=== PATIENT | female | born 1985 | race Asian ===

== ENCOUNTER 2016-06-20 11:34 | Emergency (ER) | payer SELFPAY ==
[~2016-06-20 11:34] MED LIST: ADVIL200 M3 PO; BACTRIM DS1 TA1 PO
[2016-06-20 12:49] LABS: BASO % 0.7 % (0-2); EOS % 1.5 % (0-7); EOSINOPHIL ABSOLUTE COUNT 0.1 tho/cmm (0.0-0.7); HCT-HEMATOCRIT 40.2 % (34.0-49.0); HGB-HEMOGLOBIN 13.7 gm/dl (12.0-15.5); IMMATURE GRANULOCYTES ABSOLUTE 0.01 tho/cmm (0-0.03); IMMATURE GRANULOCYTES PERCENT 0.2 % (0-0.3); LYMPH % 29.5 % (20-45); LYMPH ABSOLUTE COUNT 1.8 tho/cmm (0.8-4.5); MCH (MEAN CORPUSCULAR HGB) 31.6 pg (28.0-32.0); MCHC MEAN CORPUSCULAR HGB CONC 34.1 % (32.0-36.0); MCV (MEAN CELL VOLUME) 92.6 fl (82.0-96.0); MEAN PLATELET VOLUME 9.8 cmc (9.4-12.4); MONO % 4.7 % (0-12); MONOCYTE ABSOLUTE COUNT 0.3 tho/cmm (0.0-1.2); NEUTROPHIL ABSOLUTE COUNT 3.8 tho/cmm (1.6-8.0); NEUTROPHIL-AUTOMATED 3.8 tho/cmm (1.6-8.0); NEUTROPHILS % 63.4 % (40-80); PLATELET COUNT 282 tho/cmm (150-450); RED BLOOD COUNT 4.34 mil/cmm (4.00-5.20); RED CELL DISTRIBUTION WIDTH 12.2 % (12.4-16.4)
[2016-06-20 13:01] LABS: ANION GAP 12 mmol/L (0-20); BLOOD UREA NITROGEN 10 mg/dl (6-24); CALCIUM 9.1 mg/dl (8.5-10.5); CARBON DIOXIDE-VENOUS 24 mmol/L (22-32); CHLORIDE 105 mmol/l (96-110); CREATININE 0.72 mg/dl (0.50-1.10); GLUCOSE 96 mg/dL (70-110); SODIUM 137 mmol/L (135-145); eGFR VALUE FOR BLACK >90 mL/Min
[2016-06-20 13:02] LABS: PREGNANCY-SERUM NEGATIVE (NEGATIVE)
[2016-06-20 13:03] LABS: POTASSIUM 3.9 mmol/L (3.7-5.1)
[2016-06-20] MEDS ORDERED: NORCO 5-325 TA1 EACH PO (16:01)
[2016-06-20] MEDS ORDERED: CIPRO500 M2 PO (16:01)
[2016-06-20] MEDS ORDERED: FLAGYL500 M1 PO (16:01)
[2016-07-08] MEDS ORDERED: TUMS PO (18:19)
[2016-07-08] MEDS ORDERED: PEPTO-BISM262 MG/11 PO (18:19)
== END 2016-06-20 16:56 ==
LOC: EDMED 11:34
PROVIDERS: Emergency Medicine
DX: K62.89 Other specified diseases of anus and rectum (principal)
CPT/HCPCS: J7030; Q9967

== ENCOUNTER 2016-07-10 12:01 | Day surgery (SDC) | payer SELFPAY ==
[~2016-07-10 12:01] MED LIST changes: +CIPRO500 M2 PO; +FLAGYL500 M1 PO; +NORCO 5-325 TA1 EACH PO; +PEPTO-BISM262 MG/11 PO; +TUMS PO
== END 2016-07-10 18:00 ==
LOC: SRG 12:01 → SHSB 12:02 → PACU 14:52 → SHSB 16:00
PROC: 0DBQ0ZZ Excision of Anus, Open Approach (ICD-10-PCS; principal; 2016-07-10)
DX: K60.3 Anal fistula (principal)
CPT/HCPCS: J0690; J2175

== ENCOUNTER 2016-07-30 13:03 | Emergency (ER) | payer OTHER ==
[2016-07-30] MEDS ORDERED: COLACE100 M1 PO (13:14)
[2016-07-30] MEDS ORDERED: NORCO 5-325 TA1 EACH PO ×2 (13:17→15:49)
[2016-07-30] MEDS ORDERED: TYLENOL EXTRA500 M1 PO (13:31)
[2016-07-30] MEDS ORDERED: PREDNISONE10 M1 PO (15:49)
== END 2016-07-30 16:20 ==
LOC: EDMED 13:03
DX: M54.5 Low back pain (principal); F41.9 Anxiety disorder, unspecified
CPT/HCPCS: J1170; J2060; J2405

== ENCOUNTER 2016-08-05 12:31 | Emergency (ER) | payer SELFPAY ==
[~2016-08-05 12:31] MED LIST changes: +COLACE100 M1 PO; +PREDNISONE10 M1 PO; +TYLENOL EXTRA500 M1 PO
[2016-08-05 14:23] LABS: BASO % 0.4 % (0-2); HCT-HEMATOCRIT 39.6 % (34.0-49.0); HGB-HEMOGLOBIN 13.6 gm/dl (12.0-15.5); IMMATURE GRANULOCYTES ABSOLUTE 0.01 tho/cmm (0-0.03); IMMATURE GRANULOCYTES PERCENT 0.1 % (0-0.3); LYMPH % 14.8 % (20-45); LYMPH ABSOLUTE COUNT 1.2 tho/cmm (0.8-4.5); MCH (MEAN CORPUSCULAR HGB) 31.8 pg (28.0-32.0); MCHC MEAN CORPUSCULAR HGB CONC 34.3 % (32.0-36.0); MCV (MEAN CELL VOLUME) 92.5 fl (82.0-96.0); MONO % 4.8 % (0-12); MONOCYTE ABSOLUTE COUNT 0.4 tho/cmm (0.0-1.2); NEUTROPHIL ABSOLUTE COUNT 6.5 tho/cmm (1.6-8.0); NEUTROPHIL-AUTOMATED 6.5 tho/cmm (1.6-8.0); NEUTROPHILS % 79.9 % (40-80); PLATELET COUNT 273 tho/cmm (150-450); RED BLOOD COUNT 4.28 mil/cmm (4.00-5.20); RED CELL DISTRIBUTION WIDTH 12.4 % (12.4-16.4); WHITE BLOOD COUNT 8.1 tho/cmm (4.0-10.0)
[2016-08-05 14:34] LABS: PREGNANCY-SERUM NEGATIVE (NEGATIVE)
[2016-08-05 14:42] LABS: ALB/GLOB RATIO 0.9 (0.8-2.0); ALBUMIN 4.4 g/dl (3.5-5.0); ALKALINE PHOSPHATASE 51 U/L (33-138); ALT/SGPT 19 U/L (12-78); ANION GAP 16 mmol/L (0-20); AST/SGOT 16 U/L (10-40); BILIRUBIN,TOTAL 0.7 mg/dl (0-1.5); BLOOD UREA NITROGEN 10 mg/dl (6-24); CALCIUM 9.3 mg/dl (8.5-10.5); CARBON DIOXIDE-VENOUS 23 mmol/L (22-32); CHLORIDE 104 mmol/l (96-110); CREATININE 0.65 mg/dl (0.50-1.10); GLUCOSE 90 mg/dL (70-110); LIPASE 84 U/L (73-393); POTASSIUM 3.9 mmol/L (3.7-5.1); SODIUM 139 mmol/L (135-145); T4 (THYROXINE) 15.4 ug/dl (5.0-12.6); eGFR VALUE FOR BLACK >90 mL/Min
[2016-08-05 14:43] LABS: C-REACTIVE PROTEIN <0.3 mg/dl (0-0.9)
[2016-08-05 14:46] LABS: TSH-THYROID STIMULATING HORM. 2.39 uIU/ml (0.40-3.80)
[2016-08-05 15:07] LABS: URINE APPEARANCE CLEAR; URINE BILIRUBIN NEGATIVE (NEG); URINE BLOOD NEGATIVE (NEG); URINE COLOR YELLOW; URINE GLUCOSE (UA) NEGATIVE (NEG); URINE KETONE LARGE (NEG); URINE LEUKOCYTE ESTERASE POSITIVE (NEG); URINE NITRITE NEGATIVE (NEG); URINE PROTEIN NEGATIVE (NEG)
[2016-08-05 15:17] LABS: URINE MUCUS 1+
[2016-08-05 15:18] LABS: URINE BACTERIA 1+
[2016-08-05] MEDS ORDERED: XANAX0.5 M1 PO (17:21)
[2016-08-05] MEDS ORDERED: CIPRO500 M2 PO (17:21)
== END 2016-08-05 17:25 ==
LOC: EDMED 12:31
PROVIDERS: Emergency Medicine
DX: N39.0 Urinary tract infection, site not specified (principal); R19.7 Diarrhea, unspecified; R00.2 Palpitations; F41.9 Anxiety disorder, unspecified
CPT/HCPCS: J7030; Q9967